=== PATIENT | female | born 1970 | race Caucasian/White ===

== ENCOUNTER 2020-09-13 14:47 | Inpatient (IN) ==
[2020-09-13] MEDS ORDERED: Acetaminophen 325 MG TABLET PO PRN (17:12)
[2020-09-13] MEDS ORDERED: MetroNIDAZOLE 500 MG/100 ML 500 MG/100 ML BAG IVPB SCH (17:12)
[2020-09-13] MEDS ORDERED: Naloxone 0.4 MG/ML INJ IVP PRN (17:12)
[2020-09-13] MEDS ORDERED: D5% in Water 250 ML ONE (17:24)
[2020-09-13] MEDS ORDERED: *HR* Norepinephrine 4 MG/4 ML VIAL IVC ONE (17:24)
[2020-09-13] MEDS ORDERED: 0.9 % Sodium Chloride 1,000 ML ONE ×2 (17:28→17:45)
[2020-09-13] MEDS ORDERED: 0.9 % Sodium Chloride 250 ML ONE (17:45)
[2020-09-13 17:48] LABS: VBG Ionized Calcium 1.05 mmol/L (1.15-1.35)
[2020-09-13 18:09] LABS: Amylase 256 Units/L (29-103); Lipase 163 Units/L (11-82)
[2020-09-13] MEDS ORDERED: Calcium Chloride 1,000 MG in 0.9 % Sodium Chloride 100 ML IVPB ONE (18:15)
[2020-09-13 18:18] LABS: Albumin 2.8 g/dL (3.5-5.7); Albumin/Globulin Ratio 0.8 (1.1-2.2); Bilirubin,Direct 1.1 mg/dL (0.0-0.2); Bilirubin,Indirect 0.7 mg/dL (0.0-1.0); Bilirubin,Total 1.8 mg/dL (0.3-1.0); Calcium 9.5 mg/dL (8.6-10.3); Globulin 3.4 g/dL (2.4-3.5); Magnesium 2.3 mg/dL (1.6-2.6); Phosphorous 7.8 mg/dL (2.7-4.5); Potassium 8.1 mEq/L (3.5-5.1); Total Protein 6.2 g/dL (6.4-8.9); Troponin I 0.04 ng/mL (< 0.04)
[2020-09-13 18:24] LABS: Basophils # 0.3 K/mcL (0.0-0.2); Basophils % 0.7 %; Eosinophils % 0.1 %; Hematocrit 38.3 % (35.3-44.9); Hemoglobin 12.5 g/dL (11.5-15.4); Immature Granulocytes % 4.5 % (0-4); Lymphocytes % 2.5 %; Mean Corpuscular HGB Conc 32.6 g/dL (31.6-35.5); Mean Corpuscular Hemoglobin 30.3 pg (28.0-33.3); Mean Corpuscular Volume 92.7 fL (83.0-100.0); Mean Platelet Volume 9.5 fL (9.4-12.4); Monocytes # 2.1 K/mcL (0.0-1.3); Monocytes % 5.2 %; Neutrophils # 35.5 K/mcL (1.6-8.9); Nucleated Red Blood Cells 0.1 /100 WBC (0); Platelet Count 404 K/mcL (140-400); Red Blood Count 4.13 M/mcL (3.82-4.97); Red Cell Distribution Width 18.7 % (11.5-14.5)
[2020-09-13 18:27] LABS: Adenovirus Not Detected (Not Detect); Bordetella Pertussis Not Detected (Not Detect); Chlamydophila pneumoniae Not Detected (Not Detect); Coronavirus 229E Not Detected (Not Detect); Coronavirus HKU1 Not Detected (Not Detect); Coronavirus NL63 Not Detected (Not Detect); Coronavirus OC43 Not Detected (Not Detect); Human Metapneumovirus Not Detected (Not Detect); Human Rhinovirus/Enterovirus Not Detected (Not Detect); Influenza A Subtype 2009 H1 Not Detected (Not Detect); Influenza B Not Detected (Not Detect); Mycoplasma pneumoniae Not Detected (Not Detect); Parainfluenza Virus 1 Not Detected (Not Detect); Parainfluenza Virus 2 Not Detected (Not Detect); Parainfluenza Virus 3 Not Detected (Not Detect); Parainfluenza Virus 4 Not Detected (Not Detect); Respiratory Syncytial Virus Not Detected (Not Detect); SARS-CoV-2 Not Detected (Not Detect)
[2020-09-13 18:28] LABS: White Blood Count 40.8 K/mcL (4.3-11.1)
[2020-09-13 18:29] LABS: Platelet Estimate Normal (Normal)
[2020-09-13 18:31] LABS: INR 1.2; Prothrombin Time 14.2 Seconds (9.4-12.1)
[2020-09-13 18:34] LABS: Activated Partial Thrombo Time 32.5 Seconds (26.0-36.0)
[2020-09-13] MEDS ORDERED: Insulin Human Regular 10 UNIT in 0.9 % Sodium Chloride 10 ML IV ONE ×2 (18:36→19:00)
[2020-09-13] MEDS ORDERED: *HR* Dextrose 50 % in Water (Vial) 50 ML VIAL IVP ONE (18:36)
[2020-09-13] MEDS ORDERED: Albuterol 2.5 MG/3 ML NEBULIZER IH PRN (18:36)
[2020-09-13] MEDS: 0.9 % Sodium Chloride 1,000 ML IVC SCH ×3 (18:48→20:40)
[2020-09-13] MEDS: Ipratropium/Albuterol Neb 3 ML IH SCH ×2 (18:51→23:31)
[2020-09-13 18:54] LABS: ABG Base Excess -4 mEq/L (-2 to 3); ABG HCO3 20 mEq/L (21-27); ABG Oxygen Saturation 98 % (95-98); ABG PCO2 31 mmHg (35-45); ABG PH 7.42 pH Units (7.32-7.45); ABG PO2 103 mmHg (85-104); ABG TCO2 21 mEq/L (20-26); Blood Gas Modality ASSIST CONTROL; Blood Gas VT 400 cc
[2020-09-13] MEDS ORDERED: Artificial Tears SOLN 15 ML BOTTLE BOTH EYES PRN (18:59)
[2020-09-13] MEDS ORDERED: Vancomycin 1,250 MG/262.5 ML IV.SOLN IVPB ONE (19:00)
[2020-09-13] MEDS: Sodium Bicarbonate 150 MEQ in D5% in Water 1,000 ML IVC SCH (19:38)
[2020-09-13] MEDS: Norepinephrine 4 MG/254 ML IV.SOLN IVC SCH (20:34)
[2020-09-13] MEDS: Chlorhexidine Rinse 15 ML MOUTHWASH MM SCH (20:38)
[2020-09-13] MEDS: Artificial Tears SOLN 15 ML BOTTLE BOTH EYES SCH ×2 (20:38→22:56)
[2020-09-13 21:33] LABS: Eosinophils % 0.1 %; Hemoglobin 11.7 g/dL (11.5-15.4); Nucleated Red Blood Cells 0.1 /100 WBC (0); Red Cell Distribution Width 18.6 % (11.5-14.5)
[2020-09-13 21:34] LABS: Basophils % 0.4 %; Hematocrit 35.3 % (35.3-44.9); Immature Granulocytes % 4.5 % (0-4); Lymphocytes # 0.9 K/mcL (0.6-4.6); Lymphocytes % 2.6 %; Mean Corpuscular HGB Conc 33.1 g/dL (31.6-35.5); Mean Corpuscular Hemoglobin 30.1 pg (28.0-33.3); Mean Corpuscular Volume 90.7 fL (83.0-100.0); Mean Platelet Volume 9.4 fL (9.4-12.4); Monocytes # 2.9 K/mcL (0.0-1.3); Monocytes % 8.4 %; Neutrophils # 28.8 K/mcL (1.6-8.9); Platelet Count 324 K/mcL (140-400); Red Blood Count 3.89 M/mcL (3.82-4.97)
[2020-09-13 21:38] LABS: Basophils # 0.1 K/mcL (0.0-0.2)
[2020-09-13 21:39] LABS: White Blood Count 34.3 K/mcL (4.3-11.1)
[2020-09-13 21:40] LABS: INR 1.4
[2020-09-13 21:57] LABS: Platelet Estimate Normal (Normal)
[2020-09-13 22:04] LABS: Albumin 2.9 g/dL (3.5-5.7); Albumin/Globulin Ratio 1.1 (1.1-2.2); Bilirubin,Total 2.7 mg/dL (0.3-1.0); Calcium 9.1 mg/dL (8.6-10.3); Globulin 2.7 g/dL (2.4-3.5); Magnesium 1.9 mg/dL (1.6-2.6); Phosphorous 6.5 mg/dL (2.7-4.5); Potassium 5.7 mEq/L (3.5-5.1); Total Protein 5.6 g/dL (6.4-8.9); Troponin I 0.1 ng/mL (< 0.04)
[2020-09-13] MEDS ORDERED: Ondansetron 4 MG/2 ML VIAL ONE (22:46)
[2020-09-13] MEDS: MetroNIDAZOLE 500 MG/100 ML 500 MG/100 ML BAG IVPB SCH (22:54)
[2020-09-13] MEDS: Ondansetron 4 MG/2 ML VIAL IVP PRN (22:55)
[2020-09-13] MEDS ORDERED: 0.9 % Sodium Chloride 1,000 ML PRIME ONE ×2 (23:14)
[2020-09-13] MEDS ORDERED: *HR* Heparin 5,000 UNIT/ML VIAL IVP PRN (23:14)
[2020-09-13] MEDS ORDERED: *HR* Alteplase (Cathflo) 2 MG VIAL IVP PRN (23:14)
[2020-09-14] MEDS ORDERED: 0.9 % Sodium Chloride 250 ML ONE (00:04)
[2020-09-14] MEDS: PrismaSATE BGK 4/2.5 5,000 ML CRRT SCH ×8 (01:00→20:28)
[2020-09-14] MEDS: 0.9 % Sodium Chloride 1,000 ML PRIME SCH ×2 (01:21→03:50)
[2020-09-14 03:31] LABS: VBG Ionized Calcium 1.05 mmol/L (1.15-1.35)
[2020-09-14] MEDS: Ipratropium/Albuterol Neb 3 ML IH SCH ×6 (03:31→23:13)
[2020-09-14 03:37] LABS: Basophils % 0.4 %; Hemoglobin 11.7 g/dL (11.5-15.4); Monocytes % 4.6 %
[2020-09-14 03:39] LABS: Basophils # 0.1 K/mcL (0.0-0.2); Hematocrit 35.4 % (35.3-44.9); Immature Granulocytes % 3.1 % (0-4); Lymphocytes # 1.3 K/mcL (0.6-4.6); Lymphocytes % 3.8 %; Mean Corpuscular HGB Conc 33.1 g/dL (31.6-35.5); Mean Corpuscular Hemoglobin 29.6 pg (28.0-33.3); Mean Corpuscular Volume 89.6 fL (83.0-100.0); Mean Platelet Volume 9.7 fL (9.4-12.4); Monocytes # 1.6 K/mcL (0.0-1.3); Neutrophils # 30.6 K/mcL (1.6-8.9); Platelet Count 318 K/mcL (140-400); Red Blood Count 3.95 M/mcL (3.82-4.97); Segmented Neutrophils % 88.1 %
[2020-09-14 03:40] LABS: INR 1.2; Prothrombin Time 13.8 Seconds (9.4-12.1)
[2020-09-14 03:43] LABS: White Blood Count 34.7 K/mcL (4.3-11.1)
[2020-09-14] MEDS: Artificial Tears SOLN 15 ML BOTTLE BOTH EYES SCH ×5 (04:17→20:00)
[2020-09-14 04:37] LABS: Albumin 2.9 g/dL (3.5-5.7); Albumin/Globulin Ratio 0.9 (1.1-2.2); Bilirubin,Total 2.2 mg/dL (0.3-1.0); Calcium 8.7 mg/dL (8.6-10.3); Globulin 3.3 g/dL (2.4-3.5); Magnesium 1.9 mg/dL (1.6-2.6); Phosphorous 5.6 mg/dL (2.7-4.5); Potassium 5.6 mEq/L (3.5-5.1); Total Protein 6.2 g/dL (6.4-8.9)
[2020-09-14 04:42] LABS: Troponin I 0.26 ng/mL (< 0.04)
[2020-09-14 04:56] LABS: ABG Base Excess -4 mEq/L (-2 to 3); ABG HCO3 19 mEq/L (21-27); ABG Oxygen Saturation 99 % (95-98); ABG PCO2 29 mmHg (35-45); ABG PH 7.44 pH Units (7.32-7.45); ABG PO2 120 mmHg (85-104); ABG TCO2 20 mEq/L (20-26); Blood Gas Modality AF; Blood Gas VT 400 cc
[2020-09-14] MEDS: Sodium Bicarbonate 150 MEQ in D5% in Water 1,000 ML IVC SCH ×2 (05:59→19:19)
[2020-09-14] MEDS: Pantoprazole 40 MG VIAL IVP SCH ×2 (06:18→18:36)
[2020-09-14] MEDS: MetroNIDAZOLE 500 MG/100 ML 500 MG/100 ML BAG IVPB SCH ×3 (06:18→22:08)
[2020-09-14] MEDS: Chlorhexidine Rinse 15 ML MOUTHWASH MM SCH ×2 (08:28→20:00)
[2020-09-14] MEDS ORDERED: Perflutren Lipid Microsphere 1.3 ML in 0.9 % Sodium Chloride 8.7 ML IVP PRN (08:41)
[2020-09-14] MEDS: clonazePAM 0.5 MG TABLET PO SCH ×3 (12:00→20:00)
[2020-09-14] MEDS ORDERED: 0.9 % Sodium Chloride 2,000 ML ONE (12:39)
[2020-09-14] MEDS ORDERED: *HR* Heparin 5,000 UNIT/ML VIAL ONE ×2 (12:40→22:36)
[2020-09-14] MEDS ORDERED: Heparin 1,000 UNITS/500 mL 500 ML ONE (12:46)
[2020-09-14 13:08] LABS: VBG Ionized Calcium 1.05 mmol/L (1.15-1.35)
[2020-09-14 13:38] LABS: Albumin 2.9 g/dL (3.5-5.7); Bilirubin,Total 1.3 mg/dL (0.3-1.0); Calcium 8.2 mg/dL (8.6-10.3); Globulin 2.9 g/dL (2.4-3.5); Magnesium 1.9 mg/dL (1.6-2.6); Phosphorous 4.4 mg/dL (2.7-4.5); Potassium 4.8 mEq/L (3.5-5.1); Total Protein 5.8 g/dL (6.4-8.9); Troponin I 0.19 ng/mL (< 0.04)
[2020-09-14] MEDS: levoFLOXacin 750 MG/150 ML 750 MG/150 ML BAG IVPB SCH (14:27)
[2020-09-14 17:14] LABS: VBG Ionized Calcium 1.03 mmol/L (1.15-1.35)
[2020-09-14 17:14] LABS: Basophils # 0.1 K/mcL (0.0-0.2); Basophils % 0.2 %; Eosinophils % 0.1 %; Hematocrit 28.8 % (35.3-44.9); Immature Granulocytes % 1.6 % (0-4); Lymphocytes # 0.8 K/mcL (0.6-4.6); Lymphocytes % 2.3 %; Mean Corpuscular HGB Conc 33.7 g/dL (31.6-35.5); Mean Corpuscular Hemoglobin 30.3 pg (28.0-33.3); Mean Platelet Volume 9.5 fL (9.4-12.4); Monocytes # 1.9 K/mcL (0.0-1.3); Monocytes % 5.2 %; Neutrophils # 33.3 K/mcL (1.6-8.9); Platelet Count 224 K/mcL (140-400); Red Cell Distribution Width 19.3 % (11.5-14.5); Segmented Neutrophils % 90.6 %
[2020-09-14 17:15] LABS: Hemoglobin 9.7 g/dL (11.5-15.4)
[2020-09-14 17:17] LABS: White Blood Count 36.7 K/mcL (4.3-11.1)
[2020-09-14 17:19] LABS: Platelet Estimate Normal (Normal)
[2020-09-14 17:22] LABS: Heparin anti-factor XA UFH 0.72 IU/mL (0.30-0.70); INR 1.4
[2020-09-14 17:37] LABS: Albumin 2.8 g/dL (3.5-5.7); Bilirubin,Total 1.2 mg/dL (0.3-1.0); Globulin 2.9 g/dL (2.4-3.5); Magnesium 1.8 mg/dL (1.6-2.6); Phosphorous 3.4 mg/dL (2.7-4.5); Potassium 4.7 mEq/L (3.5-5.1); Total Protein 5.7 g/dL (6.4-8.9); Troponin I 0.17 ng/mL (< 0.04)
[2020-09-14 17:38] LABS: Activated Partial Thrombo Time 122.7 Seconds (26.0-36.0)
[2020-09-14] MEDS ORDERED: Heparin 25,000UNIT/250ML 1/2NS 25,000 UNIT/250 ML IV.SOLN IVC SCH (18:00)
[2020-09-14] MEDS ORDERED: *HR* Heparin 5,000 UNIT/ML VIAL IVP PRN ×2 (18:00)
[2020-09-14 22:08] LABS: Hematocrit 28.4 % (35.3-44.9); Hemoglobin 9.3 g/dL (11.5-15.4)
[2020-09-14 22:25] LABS: Activated Partial Thrombo Time 32.1 Seconds (26.0-36.0); Heparin anti-factor XA UFH < 0.04 IU/mL (0.30-0.70)
[2020-09-15] MEDS ORDERED: *HR* LORazepam 0.5 MG TABLET PO ONE (01:37)
[2020-09-15] MEDS: Artificial Tears SOLN 15 ML BOTTLE BOTH EYES SCH ×7 (01:48→23:36)
[2020-09-15] MEDS: Ondansetron 4 MG/2 ML VIAL IVP PRN ×4 (01:58→20:30)
[2020-09-15] MEDS: Ipratropium/Albuterol Neb 3 ML IH SCH ×6 (03:21→23:37)
[2020-09-15] MEDS: Norepinephrine 4 MG/254 ML IV.SOLN IVC SCH ×2 (03:32→09:26)
[2020-09-15 04:03] LABS: ABG Base Excess 4 mEq/L (-2 to 3); ABG HCO3 30 mEq/L (21-27); ABG Oxygen Saturation 98 % (95-98); ABG PCO2 51 mmHg (35-45); ABG PH 7.38 pH Units (7.32-7.45); ABG PO2 103 mmHg (85-104); ABG TCO2 31 mEq/L (20-26); Blood Gas Modality CPAP/PS; Blood Gas Pressure Support 12 cm H2O
[2020-09-15 05:47] LABS: Basophils % 0.1 %; Nucleated Red Blood Cells 0.1 /100 WBC (0); Platelet Count 183 K/mcL (140-400)
[2020-09-15 05:48] LABS: Hematocrit 24.3 % (35.3-44.9); Hemoglobin 8.1 g/dL (11.5-15.4); Immature Granulocytes % 1.5 % (0-4); Lymphocytes # 0.7 K/mcL (0.6-4.6); Lymphocytes % 2.6 %; Mean Corpuscular HGB Conc 33.3 g/dL (31.6-35.5); Mean Corpuscular Hemoglobin 30.5 pg (28.0-33.3); Mean Corpuscular Volume 91.4 fL (83.0-100.0); Mean Platelet Volume 9.6 fL (9.4-12.4); Monocytes # 1.7 K/mcL (0.0-1.3); Monocytes % 6.6 %; Neutrophils # 23.4 K/mcL (1.6-8.9); Red Blood Count 2.66 M/mcL (3.82-4.97); Red Cell Distribution Width 19.7 % (11.5-14.5); Segmented Neutrophils % 89.2 %; White Blood Count 26.2 K/mcL (4.3-11.1)
[2020-09-15] MEDS: MetroNIDAZOLE 500 MG/100 ML 500 MG/100 ML BAG IVPB SCH ×3 (06:06→22:23)
[2020-09-15] MEDS: Pantoprazole 40 MG VIAL IVP SCH ×2 (06:06→17:19)
[2020-09-15] MEDS: Sodium Bicarbonate 150 MEQ in D5% in Water 1,000 ML IVC SCH ×2 (06:07→17:18)
[2020-09-15 06:14] LABS: Anisocytosis 1+ (Not Present); Macrocytosis Present (Not Present); Platelet Estimate Normal (Normal); Toxic Granulation Present (Not Present)
[2020-09-15 06:21] LABS: Albumin 2.7 g/dL (3.5-5.7); Bilirubin,Total 0.8 mg/dL (0.3-1.0); Calcium 8.2 mg/dL (8.6-10.3); Globulin 2.6 g/dL (2.4-3.5); Magnesium 1.8 mg/dL (1.6-2.6); Phosphorous 3.6 mg/dL (2.7-4.5); Potassium 4.6 mEq/L (3.5-5.1); Total Protein 5.3 g/dL (6.4-8.9)
[2020-09-15] MEDS: Chlorhexidine Rinse 15 ML MOUTHWASH MM SCH ×2 (09:07→20:42)
[2020-09-15] MEDS: clonazePAM 0.5 MG TABLET PO SCH ×3 (09:07→20:34)
[2020-09-15 11:19] LABS: Hematocrit 24.5 % (35.3-44.9); Hemoglobin 7.7 g/dL (11.5-15.4)
[2020-09-15] MEDS: *HR* Heparin 5,000 UNIT/ML VIAL SQ SCH (17:19)
[2020-09-15] MEDS: 0.9 % Sodium Chloride 250 ML ONE (17:38)
[2020-09-15] MEDS ORDERED: Vancomycin 500 MG in 0.9 % Sodium Chloride Mini Bag 100 ML IVPB ONE (18:00)
[2020-09-15 22:55] LABS: Hematocrit 25.3 % (35.3-44.9); Hemoglobin 8.3 g/dL (11.5-15.4)
[2020-09-16 03:58] LABS: Basophils % 0.1 %; Eosinophils # 0.1 K/mcL (0.0-0.6); Eosinophils % 0.3 %; Hematocrit 24.2 % (35.3-44.9); Immature Granulocytes % 1.1 % (0-4); Lymphocytes # 1.1 K/mcL (0.6-4.6); Lymphocytes % 6.6 %; Mean Corpuscular HGB Conc 33.1 g/dL (31.6-35.5); Mean Corpuscular Hemoglobin 29.5 pg (28.0-33.3); Mean Corpuscular Volume 89.3 fL (83.0-100.0); Mean Platelet Volume 9.5 fL (9.4-12.4); Monocytes % 6.3 %; Neutrophils # 13.8 K/mcL (1.6-8.9); Platelet Count 159 K/mcL (140-400); Red Blood Count 2.71 M/mcL (3.82-4.97); Red Cell Distribution Width 20.4 % (11.5-14.5); Segmented Neutrophils % 85.6 %; White Blood Count 16.1 K/mcL (4.3-11.1)
[2020-09-16 04:09] LABS: INR 1.4; Prothrombin Time 16.4 Seconds (9.4-12.1)
[2020-09-16] MEDS: Ipratropium/Albuterol Neb 3 ML IH SCH ×5 (04:09→20:03)
[2020-09-16 04:20] LABS: Albumin 2.4 g/dL (3.5-5.7); Bilirubin,Direct 0.3 mg/dL (0.0-0.2); Bilirubin,Indirect 0.4 mg/dL (0.0-1.0); Bilirubin,Total 0.7 mg/dL (0.3-1.0); Calcium 8.4 mg/dL (8.6-10.3); Globulin 2.5 g/dL (2.4-3.5); Magnesium 1.8 mg/dL (1.6-2.6); Phosphorous 3.7 mg/dL (2.7-4.5); Potassium 4.2 mEq/L (3.5-5.1); Total Protein 4.9 g/dL (6.4-8.9)
[2020-09-16] MEDS: Artificial Tears SOLN 15 ML BOTTLE BOTH EYES SCH ×5 (04:29→19:48)
[2020-09-16] MEDS: Sodium Bicarbonate 150 MEQ in D5% in Water 1,000 ML IVC SCH (04:29)
[2020-09-16 04:41] LABS: ABG Base Excess 8 mEq/L (-2 to 3); ABG HCO3 33 mEq/L (21-27); ABG Oxygen Saturation 99 % (95-98); ABG PCO2 48 mmHg (35-45); ABG PH 7.45 pH Units (7.32-7.45); ABG PO2 112 mmHg (85-104); ABG TCO2 35 mEq/L (20-26); Blood Gas Modality ASSIST CONTROL; Blood Gas VT 380 cc
[2020-09-16 04:52] LABS: Hematocrit 24.7 % (35.3-44.9)
[2020-09-16] MEDS: MetroNIDAZOLE 500 MG/100 ML 500 MG/100 ML BAG IVPB SCH ×3 (05:32→21:36)
[2020-09-16] MEDS: Pantoprazole 40 MG VIAL IVP SCH ×2 (05:32→18:07)
[2020-09-16] MEDS: *HR* Heparin 5,000 UNIT/ML VIAL SQ SCH ×2 (05:32→18:07)
[2020-09-16] MEDS ORDERED: Isovue-370 500 ML BOTTLE IVP ONE (08:05)
[2020-09-16] MEDS: Chlorhexidine Rinse 15 ML MOUTHWASH MM SCH ×2 (08:44→20:27)
[2020-09-16] MEDS: clonazePAM 0.5 MG TABLET PO SCH ×3 (08:45→20:27)
[2020-09-16 10:52] LABS: Hematocrit 25.3 % (35.3-44.9); Hemoglobin 8.1 g/dL (11.5-15.4)
[2020-09-16] MEDS: levoFLOXacin 750 MG/150 ML 750 MG/150 ML BAG IVPB SCH (14:36)
[2020-09-16] MEDS: Ondansetron 4 MG/2 ML VIAL IVP PRN ×2 (14:46→21:36)
[2020-09-16] MEDS: Norepinephrine 4 MG/254 ML IV.SOLN IVC SCH (19:48)
[2020-09-16] MEDS ORDERED: *HR* Dextrose 50 % in Water (Vial) 50 ML VIAL IVP ONE (23:27)
[2020-09-16] MEDS ORDERED: *HR* Dextrose 50 % in Water (Vial) 50 ML VIAL ONE (23:30)
[2020-09-17] MEDS: Ipratropium/Albuterol Neb 3 ML IH SCH ×7 (00:22→23:48)
[2020-09-17] MEDS: Artificial Tears SOLN 15 ML BOTTLE BOTH EYES SCH ×7 (01:03→23:10)
[2020-09-17] MEDS ORDERED: *HR* Dextrose 50 % in Water (Vial) 50 ML VIAL IVP ONE (01:03)
[2020-09-17] MEDS ORDERED: D5% in 0.9% NACL 1,000 ML IVC SCH (03:15)
[2020-09-17] MEDS ORDERED: Dextrose Gel 15 GM/37.5 ML TUBE PO PRN ×2 (03:18→10:56)
[2020-09-17 03:20] LABS: VBG Ionized Calcium 1.09 mmol/L (1.15-1.35)
[2020-09-17 03:27] LABS: INR 1.7; Prothrombin Time 19.5 Seconds (9.4-12.1)
[2020-09-17 03:29] LABS: Basophils % 0.2 %; Eosinophils % 0.1 %; Hematocrit 25.6 % (35.3-44.9); Hemoglobin 8.3 g/dL (11.5-15.4); Immature Granulocytes % 1.9 % (0-4); Lymphocytes % 5.6 %; Mean Corpuscular HGB Conc 32.4 g/dL (31.6-35.5); Mean Corpuscular Hemoglobin 29.6 pg (28.0-33.3); Mean Corpuscular Volume 91.4 fL (83.0-100.0); Mean Platelet Volume 9.5 fL (9.4-12.4); Monocytes # 1.2 K/mcL (0.0-1.3); Monocytes % 6.4 %; Neutrophils # 15.9 K/mcL (1.6-8.9); Nucleated Red Blood Cells 0.1 /100 WBC (0); Platelet Count 185 K/mcL (140-400); Red Cell Distribution Width 20.2 % (11.5-14.5); Segmented Neutrophils % 85.8 %; White Blood Count 18.6 K/mcL (4.3-11.1)
[2020-09-17 03:51] LABS: Albumin 2.4 g/dL (3.5-5.7); Albumin/Globulin Ratio 0.9 (1.1-2.2); Bilirubin,Direct 0.4 mg/dL (0.0-0.2); Bilirubin,Indirect 0.4 mg/dL (0.0-1.0); Bilirubin,Total 0.8 mg/dL (0.3-1.0); Calcium 8.4 mg/dL (8.6-10.3); Globulin 2.7 g/dL (2.4-3.5); Magnesium 1.8 mg/dL (1.6-2.6); Phosphorous 4.2 mg/dL (2.7-4.5); Potassium 4.3 mEq/L (3.5-5.1); Total Protein 5.1 g/dL (6.4-8.9)
[2020-09-17] MEDS: Pantoprazole 40 MG VIAL IVP SCH ×2 (05:44→16:59)
[2020-09-17] MEDS: *HR* Heparin 5,000 UNIT/ML VIAL SQ SCH ×2 (05:44→16:59)
[2020-09-17] MEDS: MetroNIDAZOLE 500 MG/100 ML 500 MG/100 ML BAG IVPB SCH ×3 (05:44→23:09)
[2020-09-17] MEDS: clonazePAM 0.5 MG TABLET PO SCH ×3 (08:23→19:49)
[2020-09-17] MEDS: Chlorhexidine Rinse 15 ML MOUTHWASH MM SCH ×2 (08:23→19:49)
[2020-09-17] MEDS: Desitin (Zinc Oxide) 56 GM TUBE TP SCH ×4 (08:24→19:51)
[2020-09-17] MEDS: Ondansetron 4 MG/2 ML VIAL IVP PRN (10:13)
[2020-09-17] MEDS ORDERED: Albuterol 2.5 MG/3 ML NEBULIZER IH PRN (10:56)
[2020-09-17] MEDS ORDERED: *HR* Alteplase (Cathflo) 2 MG VIAL IVP PRN (10:56)
[2020-09-17] MEDS ORDERED: *HR* Heparin 5,000 UNIT/ML VIAL IVP PRN (10:56)
[2020-09-17] MEDS ORDERED: Artificial Tears SOLN 15 ML BOTTLE BOTH EYES PRN (10:56)
[2020-09-17] MEDS ORDERED: Naloxone 0.4 MG/ML INJ IVP PRN (10:56)
[2020-09-17] MEDS: D5% in 0.9% NACL 1,000 ML IVC SCH (12:45)
[2020-09-17] MEDS: Benzonatate 100 MG CAPSULE PO PRN (23:31)
[2020-09-18] MEDS ORDERED: 0.9 % Sodium Chloride 250 ML IVC PRN (00:04)
[2020-09-18] MEDS ORDERED: 0.9 % Sodium Chloride 250 ML IVC ONE (00:06)
[2020-09-18] MEDS: Artificial Tears SOLN 15 ML BOTTLE BOTH EYES SCH ×5 (03:05→21:25)
[2020-09-18] MEDS: Ipratropium/Albuterol Neb 3 ML IH SCH ×6 (04:03→23:34)
[2020-09-18] MEDS: MetroNIDAZOLE 500 MG/100 ML 500 MG/100 ML BAG IVPB SCH ×3 (05:34→21:29)
[2020-09-18] MEDS: Pantoprazole 40 MG VIAL IVP SCH ×2 (05:34→17:03)
[2020-09-18] MEDS: *HR* Heparin 5,000 UNIT/ML VIAL SQ SCH ×2 (05:34→17:03)
[2020-09-18 06:15] LABS: Basophils % 0.2 %; Eosinophils # 0.1 K/mcL (0.0-0.6); Eosinophils % 0.6 %; Hematocrit 25.2 % (35.3-44.9); Hemoglobin 7.9 g/dL (11.5-15.4); Immature Granulocytes % 4.1 % (0-4); Lymphocytes # 1.6 K/mcL (0.6-4.6); Lymphocytes % 9.4 %; Mean Corpuscular HGB Conc 31.3 g/dL (31.6-35.5); Mean Corpuscular Hemoglobin 29.3 pg (28.0-33.3); Mean Corpuscular Volume 93.3 fL (83.0-100.0); Mean Platelet Volume 9.5 fL (9.4-12.4); Monocytes # 1.5 K/mcL (0.0-1.3); Monocytes % 8.4 %; Neutrophils # 13.6 K/mcL (1.6-8.9); Platelet Count 197 K/mcL (140-400); Red Cell Distribution Width 20.3 % (11.5-14.5); Segmented Neutrophils % 77.3 %; White Blood Count 17.5 K/mcL (4.3-11.1)
[2020-09-18 06:16] LABS: VBG Ionized Calcium 1.08 mmol/L (1.15-1.35)
[2020-09-18 06:22] LABS: INR 2.2; Prothrombin Time 24.8 Seconds (9.4-12.1)
[2020-09-18 06:37] LABS: Albumin 2.4 g/dL (3.5-5.7); Bilirubin,Direct 0.3 mg/dL (0.0-0.2); Bilirubin,Indirect 0.5 mg/dL (0.0-1.0); Bilirubin,Total 0.8 mg/dL (0.3-1.0); Globulin 2.5 g/dL (2.4-3.5); Magnesium 1.8 mg/dL (1.6-2.6); Phosphorous 5.2 mg/dL (2.7-4.5); Potassium 4.2 mEq/L (3.5-5.1); Total Protein 4.9 g/dL (6.4-8.9)
[2020-09-18] MEDS: Vitamin B Complex/Vit C/Vit E 1 EACH TABLET PO SCH (08:20)
[2020-09-18] MEDS: clonazePAM 0.5 MG TABLET PO SCH ×3 (08:21→21:26)
[2020-09-18] MEDS: Chlorhexidine Rinse 15 ML MOUTHWASH MM SCH ×2 (08:21→21:24)
[2020-09-18] MEDS: Desitin (Zinc Oxide) 56 GM TUBE TP SCH ×3 (08:22→21:26)
[2020-09-18] MEDS ORDERED: *HR* FentaNYL (PF) 100 MCG/2 ML VIAL IVP ONE (09:42)
[2020-09-18] MEDS ORDERED: *HR* EPINEPHrine 1 MG/10 ML SYRINGE INTRATRACH PRN (09:42)
[2020-09-18] MEDS ORDERED: *HR* Midazolam HCl 5 MG/5 ML VIAL IVP ONE (09:42)
[2020-09-18] MEDS: D5% in 0.9% NACL 1,000 ML IVC SCH (10:26)
[2020-09-18] MEDS ORDERED: Lidocaine Viscous Oral Soln 15 ML SOLUTION ONE (10:34)
[2020-09-18] MEDS ORDERED: levoFLOXacin 750 MG/150 ML 750 MG/150 ML BAG IVPB SCH (14:00)
[2020-09-18] MEDS ORDERED: 0.9 % Sodium Chloride 250 ML ONE (16:58)
[2020-09-18] MEDS: 0.9 % Sodium Chloride 250 ML ONE (17:03)
[2020-09-18] MEDS: Budesonide/Formoterol 160/4.5 1 PUFF INH IH SCH (20:28)
[2020-09-18] MEDS: Mirtazapine 15 MG TABLET PO SCH (21:25)
[2020-09-18 22:48] LABS: Hematocrit 28.5 % (35.3-44.9); Mean Corpuscular HGB Conc 31.6 g/dL (31.6-35.5); Mean Corpuscular Hemoglobin 28.8 pg (28.0-33.3); Mean Corpuscular Volume 91.3 fL (83.0-100.0); Mean Platelet Volume 9.1 fL (9.4-12.4); Platelet Count 221 K/mcL (140-400); Red Blood Count 3.12 M/mcL (3.82-4.97); Red Cell Distribution Width 18.9 % (11.5-14.5); White Blood Count 18.9 K/mcL (4.3-11.1)
[2020-09-19] MEDS: Ipratropium/Albuterol Neb 3 ML IH SCH ×7 (04:07→23:18)
[2020-09-19] MEDS: Artificial Tears SOLN 15 ML BOTTLE BOTH EYES SCH ×6 (04:10→23:02)
[2020-09-19 04:31] LABS: Hematocrit 28.4 % (35.3-44.9); Mean Corpuscular HGB Conc 31.7 g/dL (31.6-35.5); Mean Corpuscular Hemoglobin 29.1 pg (28.0-33.3); Mean Corpuscular Volume 91.9 fL (83.0-100.0); Mean Platelet Volume 9.2 fL (9.4-12.4); Platelet Count 244 K/mcL (140-400); Red Blood Count 3.09 M/mcL (3.82-4.97); Red Cell Distribution Width 19.2 % (11.5-14.5); White Blood Count 17.3 K/mcL (4.3-11.1)
[2020-09-19 04:38] LABS: VBG Ionized Calcium 1.06 mmol/L (1.15-1.35)
[2020-09-19 04:49] LABS: Albumin 2.4 g/dL (3.5-5.7); Albumin/Globulin Ratio 0.9 (1.1-2.2); Bilirubin,Total 0.9 mg/dL (0.3-1.0); Calcium 7.8 mg/dL (8.6-10.3); Globulin 2.7 g/dL (2.4-3.5); Magnesium 1.8 mg/dL (1.6-2.6); Phosphorous 5.8 mg/dL (2.7-4.5); Total Protein 5.1 g/dL (6.4-8.9)
[2020-09-19 04:53] LABS: INR 2.7; Prothrombin Time 30.5 Seconds (9.4-12.1)
[2020-09-19 05:30] LABS: Lymphocytes # 1.7 K/mcL (0.6-4.6); Monocytes # 0.7 K/mcL (0.0-1.3); Neutrophils # 14.5 K/mcL (1.6-8.9); Platelet Estimate Normal (Normal); Toxic Granulation Present (Not Present)
[2020-09-19] MEDS: *HR* Heparin 5,000 UNIT/ML VIAL SQ SCH ×2 (06:39→16:50)
[2020-09-19] MEDS: Pantoprazole 40 MG VIAL IVP SCH ×2 (06:39→16:49)
[2020-09-19] MEDS: MetroNIDAZOLE 500 MG/100 ML 500 MG/100 ML BAG IVPB SCH ×3 (06:40→23:01)
[2020-09-19] MEDS ORDERED: 0.9 % Sodium Chloride 1,000 ML ONE (07:27)
[2020-09-19] MEDS ORDERED: Albumin 25% 25gram/100mL 25 GM/100 ML IV.SOLN IVPB PRN (07:31)
[2020-09-19] MEDS ORDERED: *HR* Heparin 10,000 UNIT/10 ML VIAL IV PRN (07:31)
[2020-09-19] MEDS ORDERED: 0.9 % Sodium Chloride 250 ML IVC PRN (07:31)
[2020-09-19] MEDS: Budesonide/Formoterol 160/4.5 1 PUFF INH IH SCH ×2 (07:40→19:53)
[2020-09-19] MEDS ORDERED: 0.9 % Sodium Chloride 1,000 ML PRIME SCH (07:45)
[2020-09-19] MEDS: Desitin (Zinc Oxide) 56 GM TUBE TP SCH ×3 (08:10→23:03)
[2020-09-19] MEDS: Ondansetron 4 MG/2 ML VIAL IVP PRN ×2 (10:49→17:21)
[2020-09-19] MEDS ORDERED: *HR* FentaNYL (PF) 100 MCG/2 ML VIAL IVP ONE (11:06)
[2020-09-19] MEDS ORDERED: *HR* Midazolam HCl 2 MG/2 ML VIAL IVP ONE (11:06)
[2020-09-19] MEDS ORDERED: Lidocaine/EPI 1:100k 1% 50 ML VIAL ONE (11:10)
[2020-09-19] MEDS ORDERED: Heparin 1,000 UNITS/500 mL 500 ML ONE ×3 (11:10→11:36)
[2020-09-19] MEDS ORDERED: *HR* FentaNYL (PF) 100 MCG/2 ML VIAL ONE (11:19)
[2020-09-19] MEDS ORDERED: 0.9 % Sodium Chloride 500 ML ONE (11:20)
[2020-09-19] MEDS ORDERED: *HR* Heparin 5,000 UNIT/ML VIAL ONE (12:04)
[2020-09-19] MEDS: clonazePAM 0.5 MG TABLET PO SCH ×3 (13:46→23:01)
[2020-09-19 15:09] LABS: Hepatitis B Surface Antibody < 3.10 mIU/mL
[2020-09-19 15:19] LABS: Hepatitis B Surface Antigen Nonreactive (Nonreactive)
[2020-09-19 15:44] LABS: Total Volume 24 Hour,Urine 0.11 Liters (0.60-1.60)
[2020-09-19 15:45] LABS: Total Volume 24 Hour,Urine 0.11 Liters (0.60-1.60)
[2020-09-19 16:21] LABS: Potassium,Urine 41.2 mEq/L; Protein/Creatinine Ratio,Urine 6.33 mg/mg (0.00-0.20)
[2020-09-19] MEDS: Vitamin B Complex/Vit C/Vit E 1 EACH TABLET PO SCH (16:47)
[2020-09-19] MEDS: Chlorhexidine Rinse 15 ML MOUTHWASH MM SCH ×2 (17:04→23:02)
[2020-09-19] MEDS: Acetylcysteine 10% 2 ML INHSOL IH SCH ×2 (17:53→19:54)
[2020-09-19] MEDS: Mirtazapine 15 MG TABLET PO SCH (23:01)
[2020-09-20] MEDS: Artificial Tears SOLN 15 ML BOTTLE BOTH EYES SCH ×6 (01:24→22:06)
[2020-09-20] MEDS: D5% in 0.9% NACL 1,000 ML IVC SCH (01:24)
[2020-09-20 01:45] LABS: Basophils % 0.2 %; Eosinophils % 0.1 %; Hematocrit 27.1 % (35.3-44.9); Hemoglobin 8.7 g/dL (11.5-15.4); Immature Granulocytes % 2.4 % (0-4); Lymphocytes # 1.2 K/mcL (0.6-4.6); Lymphocytes % 6.7 %; Mean Corpuscular HGB Conc 32.1 g/dL (31.6-35.5); Mean Corpuscular Hemoglobin 29.2 pg (28.0-33.3); Mean Corpuscular Volume 90.9 fL (83.0-100.0); Mean Platelet Volume 9.1 fL (9.4-12.4); Monocytes # 1.4 K/mcL (0.0-1.3); Neutrophils # 14.9 K/mcL (1.6-8.9); Platelet Count 256 K/mcL (140-400); Red Blood Count 2.98 M/mcL (3.82-4.97); Red Cell Distribution Width 19.6 % (11.5-14.5); Segmented Neutrophils % 82.6 %
[2020-09-20 01:50] LABS: VBG Ionized Calcium 1.08 mmol/L (1.15-1.35)
[2020-09-20 01:52] LABS: INR 3.6; Prothrombin Time 39.9 Seconds (9.4-12.1)
[2020-09-20 02:01] LABS: Albumin 2.6 g/dL (3.5-5.7); Bilirubin,Total 0.9 mg/dL (0.3-1.0); Calcium 7.9 mg/dL (8.6-10.3); Globulin 2.5 g/dL (2.4-3.5); Magnesium 1.7 mg/dL (1.6-2.6); Phosphorous 3.1 mg/dL (2.7-4.5); Potassium 3.7 mEq/L (3.5-5.1); Total Protein 5.1 g/dL (6.4-8.9)
[2020-09-20] MEDS: Acetaminophen 325 MG TABLET PO PRN (03:10)
[2020-09-20] MEDS: Acetylcysteine 10% 2 ML INHSOL IH SCH ×4 (03:37→19:39)
[2020-09-20] MEDS: Ipratropium/Albuterol Neb 3 ML IH SCH ×6 (03:37→23:40)
[2020-09-20] MEDS: Pantoprazole 40 MG VIAL IVP SCH ×2 (06:55→18:08)
[2020-09-20] MEDS: MetroNIDAZOLE 500 MG/100 ML 500 MG/100 ML BAG IVPB SCH ×2 (06:56→15:21)
[2020-09-20] MEDS: Desitin (Zinc Oxide) 56 GM TUBE TP SCH ×4 (06:57→22:06)
[2020-09-20] MEDS: *HR* Heparin 5,000 UNIT/ML VIAL SQ SCH (06:58)
[2020-09-20] MEDS: Budesonide/Formoterol 160/4.5 1 PUFF INH IH SCH ×2 (07:12→19:39)
[2020-09-20 07:58] LABS: Blood Gas VT 380 cc; Mixed Venous Blood pCO2 37 mmHg (44-46); Mixed Venous Blood pH 7.43 pH Units (7.34-7.36); Mixed Venous Blood pO2 36 mmHg (35-45)
[2020-09-20] MEDS ORDERED: Ertapenem 1,000 MG in 0.9 % Sodium Chloride Mini Bag 100 ML IVPB SCH (09:00)
[2020-09-20] MEDS: clonazePAM 0.5 MG TABLET PO SCH ×3 (09:09→22:05)
[2020-09-20] MEDS: Vitamin B Complex/Vit C/Vit E 1 EACH TABLET PO SCH (09:09)
[2020-09-20] MEDS: Chlorhexidine Rinse 15 ML MOUTHWASH MM SCH ×2 (09:10→22:05)
[2020-09-20] MEDS: Ondansetron 4 MG/2 ML VIAL IVP PRN (09:29)
[2020-09-20] MEDS ORDERED: levoFLOXacin 500 MG/100 ML 500 MG/100 ML BAG IVPB SCH (16:00)
[2020-09-20] MEDS: Mirtazapine 15 MG TABLET PO SCH (22:05)
[2020-09-21 02:33] LABS: Basophils % 0.2 %; Eosinophils # 0.1 K/mcL (0.0-0.6); Eosinophils % 0.3 %; Hemoglobin 8.9 g/dL (11.5-15.4); Immature Granulocytes % 2.8 % (0-4); Lymphocytes # 2.1 K/mcL (0.6-4.6); Lymphocytes % 11.4 %; Mean Corpuscular HGB Conc 31.8 g/dL (31.6-35.5); Mean Corpuscular Hemoglobin 29.4 pg (28.0-33.3); Mean Corpuscular Volume 92.4 fL (83.0-100.0); Monocytes # 1.4 K/mcL (0.0-1.3); Monocytes % 7.4 %; Neutrophils # 14.3 K/mcL (1.6-8.9); Platelet Count 268 K/mcL (140-400); Red Blood Count 3.03 M/mcL (3.82-4.97); Red Cell Distribution Width 19.9 % (11.5-14.5); Segmented Neutrophils % 77.9 %; White Blood Count 18.3 K/mcL (4.3-11.1)
[2020-09-21 02:36] LABS: VBG Ionized Calcium 1.07 mmol/L (1.15-1.35)
[2020-09-21 02:40] LABS: INR 4.9; Prothrombin Time 53.7 Seconds (9.4-12.1)
[2020-09-21 02:41] LABS: Bacteria,Urine Few per hpf (None-Few); Bilirubin,Urine Negative (Negative); Blood,Urine Moderate (Negative); Budding Yeast,Urine Moderate per hpf (None Seen); Clarity,Urine Turbid (Clear); Color,Urine Yellow (Yellow); Glucose,Urine (UA) Normal (Normal); Hyaline Casts,Urine Few per lpf (None Seen); Ketones,Urine Negative (Negative); Leukocyte Esterase,Urine Large (Negative); Nitrite,Urine Negative (Negative); Protein,Urine 100 mg/dL (Neg-Trace); RBC,Urine 30-50 per hpf (0-3); Specific Gravity,Urine 1.023 (1.010-1.025); Squamous Epithelial Cell,Urine Few per hpf (None-Few); Urobilinogen,Urine Normal (Normal); WBC,Urine TNTC per hpf (0-3)
[2020-09-21 02:54] LABS: Albumin 2.5 g/dL (3.5-5.7); Albumin/Globulin Ratio 0.9 (1.1-2.2); Bilirubin,Total 0.9 mg/dL (0.3-1.0); Calcium 8.1 mg/dL (8.6-10.3); Globulin 2.7 g/dL (2.4-3.5); Magnesium 1.6 mg/dL (1.6-2.6); Phosphorous 3.5 mg/dL (2.7-4.5); Potassium 3.4 mEq/L (3.5-5.1); Total Protein 5.2 g/dL (6.4-8.9)
[2020-09-21] MEDS: Acetylcysteine 10% 2 ML INHSOL IH SCH ×4 (04:09→19:51)
[2020-09-21] MEDS: Ipratropium/Albuterol Neb 3 ML IH SCH ×6 (04:09→23:59)
[2020-09-21] MEDS: Artificial Tears SOLN 15 ML BOTTLE BOTH EYES SCH ×7 (06:45→23:43)
[2020-09-21] MEDS: Pantoprazole 40 MG VIAL IVP SCH ×2 (06:46→16:53)
[2020-09-21] MEDS: Budesonide/Formoterol 160/4.5 1 PUFF INH IH SCH ×2 (07:30→19:52)
[2020-09-21] MEDS ORDERED: 0.9 % Sodium Chloride 250 ML IVC PRN (08:08)
[2020-09-21] MEDS ORDERED: Albumin 25% 25gram/100mL 25 GM/100 ML IV.SOLN IVPB PRN (08:08)
[2020-09-21] MEDS ORDERED: *HR* Heparin 10,000 UNIT/10 ML VIAL IV PRN (08:08)
[2020-09-21] MEDS ORDERED: 0.9 % Sodium Chloride 1,000 ML PRIME SCH (08:15)
[2020-09-21] MEDS: Vitamin B Complex/Vit C/Vit E 1 EACH TABLET PO SCH (09:10)
[2020-09-21] MEDS: D5% in 0.9% NACL 1,000 ML IVC SCH (09:10)
[2020-09-21] MEDS: clonazePAM 0.5 MG TABLET PO SCH ×3 (09:10→23:38)
[2020-09-21] MEDS: Chlorhexidine Rinse 15 ML MOUTHWASH MM SCH ×2 (09:11→23:38)
[2020-09-21] MEDS: Desitin (Zinc Oxide) 56 GM TUBE TP SCH ×3 (09:11→23:40)
[2020-09-21] MEDS ORDERED: *HR* Phytonadione 5 MG TABLET PO ONE (11:45)
[2020-09-21 15:12] LABS: Activated Partial Thrombo Time 53.8 Seconds (26.0-36.0)
[2020-09-21] MEDS ORDERED: 0.9 % Sodium Chloride 250 ML ONE (15:47)
[2020-09-21] MEDS: Ondansetron 4 MG/2 ML VIAL IVP PRN (16:52)
[2020-09-21] MEDS: Benzonatate 100 MG CAPSULE PO PRN (16:57)
[2020-09-21] MEDS: Acetaminophen 325 MG TABLET PO PRN (22:40)
[2020-09-21] MEDS: metroNIDAZOLE 500 MG TABLET PO SCH (23:38)
[2020-09-21] MEDS: Mirtazapine 15 MG TABLET PO SCH (23:39)
[2020-09-22] MEDS: Ipratropium/Albuterol Neb 3 ML IH SCH ×5 (04:31→20:12)
[2020-09-22] MEDS: Acetylcysteine 10% 2 ML INHSOL IH SCH ×3 (04:31→15:06)
[2020-09-22] MEDS: Artificial Tears SOLN 15 ML BOTTLE BOTH EYES SCH ×5 (05:35→20:31)
[2020-09-22] MEDS: Pantoprazole 40 MG VIAL IVP SCH ×2 (05:35→16:37)
[2020-09-22 05:57] LABS: Basophils % 0.2 %; Eosinophils % 0.3 %; Hematocrit 26.1 % (35.3-44.9); Hemoglobin 8.4 g/dL (11.5-15.4); Immature Granulocytes % 2.2 % (0-4); Lymphocytes # 1.2 K/mcL (0.6-4.6); Lymphocytes % 8.1 %; Mean Corpuscular HGB Conc 32.2 g/dL (31.6-35.5); Mean Corpuscular Volume 93.2 fL (83.0-100.0); Mean Platelet Volume 9.2 fL (9.4-12.4); Monocytes # 0.9 K/mcL (0.0-1.3); Neutrophils # 12.5 K/mcL (1.6-8.9); Platelet Count 264 K/mcL (140-400); Red Cell Distribution Width 19.8 % (11.5-14.5); Segmented Neutrophils % 83.2 %
[2020-09-22 06:04] LABS: INR 3.1; Prothrombin Time 35.1 Seconds (9.4-12.1)
[2020-09-22 06:06] LABS: VBG Ionized Calcium 1.11 mmol/L (1.15-1.35)
[2020-09-22] MEDS: Budesonide/Formoterol 160/4.5 1 PUFF INH IH SCH ×2 (07:22→20:13)
[2020-09-22 07:33] LABS: Albumin 2.7 g/dL (3.5-5.7); Bilirubin,Direct 0.6 mg/dL (0.0-0.2); Bilirubin,Indirect 0.6 mg/dL (0.0-1.0); Bilirubin,Total 1.2 mg/dL (0.3-1.0); Globulin 2.6 g/dL (2.4-3.5); Total Protein 5.3 g/dL (6.4-8.9)
[2020-09-22 07:46] LABS: Albumin 2.7 g/dL (3.5-5.7); Bilirubin,Total 1.2 mg/dL (0.3-1.0); Calcium 8.3 mg/dL (8.6-10.3); Globulin 2.6 g/dL (2.4-3.5); Magnesium 1.6 mg/dL (1.6-2.6); Phosphorous 2.3 mg/dL (2.7-4.5); Potassium 3.1 mEq/L (3.5-5.1); Total Protein 5.3 g/dL (6.4-8.9)
[2020-09-22] MEDS: Chlorhexidine Rinse 15 ML MOUTHWASH MM SCH ×2 (08:31→20:31)
[2020-09-22] MEDS: Ondansetron 4 MG/2 ML VIAL IVP PRN ×2 (08:31→17:33)
[2020-09-22] MEDS: clonazePAM 0.5 MG TABLET PO SCH ×3 (08:31→20:31)
[2020-09-22] MEDS: Vitamin B Complex/Vit C/Vit E 1 EACH TABLET PO SCH (08:32)
[2020-09-22] MEDS: Desitin (Zinc Oxide) 56 GM TUBE TP SCH ×2 (08:32→16:37)
[2020-09-22] MEDS: metroNIDAZOLE 500 MG TABLET PO SCH ×3 (08:32→20:31)
[2020-09-22 12:35] LABS: Adenovirus F 40/41 PCR Not detected (Not detect); Astrovirus PCR Not detected (Not detect); C.difficile Toxin A/B Gene PCR Not detected (Not detect); Campylobacter by PCR Not detected (Not detect); Cryptosporidium by PCR Not detected (Not detect); Cyclospora cayetanensis PCR Not detected (Not detect); E. coli O157 by PCR Not detected (Not detect); Entamoeba histolytica PCR Not detected (Not detect); Enteroaggregative E.coli(EAEC) Not detected (Not detect); Enteropathogenic E.coli(EPEC) Not detected (Not detect); Enterotoxigenic E.coli (ETEC) Not detected (Not detect); Giardia lamblia PCR Not detected (Not detect); Norovirus GI/GII PCR Not detected (Not detect); Plesiomonas shigelloides PCR Not detected (Not detect); Rotavirus A PCR Not detected (Not detect); Salmonella PCR Not detected (Not detect); Sapovirus PCR Not detected (Not detect); Shig/EnteroinvasiveE coli EIEC Not detected (Not detect); Shigalike tox-prod E coli STEC Not detected (Not detect); Vibrio PCR Not detected (Not detect); Vibrio cholerae PCR Not detected (Not detect); Yersinia enterocolitica PCR Not detected (Not detect)
[2020-09-22] MEDS: Acetaminophen 325 MG TABLET PO PRN (16:48)
[2020-09-22] MEDS: Mirtazapine 15 MG TABLET PO SCH (20:31)
[2020-09-22] MEDS: Benzonatate 100 MG CAPSULE PO PRN (21:30)
[2020-09-23] MEDS: Ipratropium/Albuterol Neb 3 ML IH SCH ×6 (00:04→20:16)
[2020-09-23] MEDS: Artificial Tears SOLN 15 ML BOTTLE BOTH EYES SCH ×6 (01:26→19:39)
[2020-09-23] MEDS: Desitin (Zinc Oxide) 56 GM TUBE TP SCH ×3 (05:26→16:07)
[2020-09-23] MEDS: Pantoprazole 40 MG VIAL IVP SCH ×2 (05:45→16:06)
[2020-09-23 05:59] LABS: Basophils % 0.2 %; Eosinophils # 0.1 K/mcL (0.0-0.6); Eosinophils % 0.3 %; Hematocrit 25.5 % (35.3-44.9); Hemoglobin 8.2 g/dL (11.5-15.4); Immature Granulocytes % 1.5 % (0-4); Lymphocytes # 0.7 K/mcL (0.6-4.6); Lymphocytes % 4.8 %; Mean Corpuscular HGB Conc 32.2 g/dL (31.6-35.5); Mean Corpuscular Hemoglobin 29.3 pg (28.0-33.3); Mean Corpuscular Volume 91.1 fL (83.0-100.0); Mean Platelet Volume 9.1 fL (9.4-12.4); Monocytes # 0.9 K/mcL (0.0-1.3); Monocytes % 6.1 %; Neutrophils # 13.2 K/mcL (1.6-8.9); Platelet Count 268 K/mcL (140-400); Red Cell Distribution Width 19.7 % (11.5-14.5); Segmented Neutrophils % 87.1 %; White Blood Count 15.2 K/mcL (4.3-11.1)
[2020-09-23 06:15] LABS: Calcium 8.4 mg/dL (8.6-10.3); Potassium 3.2 mEq/L (3.5-5.1)
[2020-09-23] MEDS ORDERED: *HR* Heparin 10,000 UNIT/10 ML VIAL IV PRN (07:23)
[2020-09-23] MEDS ORDERED: 0.9 % Sodium Chloride 250 ML IVC PRN (07:23)
[2020-09-23] MEDS: Budesonide/Formoterol 160/4.5 1 PUFF INH IH SCH ×2 (07:28→20:16)
[2020-09-23] MEDS: Vitamin B Complex/Vit C/Vit E 1 EACH TABLET PO SCH (08:33)
[2020-09-23] MEDS: metroNIDAZOLE 500 MG TABLET PO SCH ×3 (08:33→19:39)
[2020-09-23] MEDS: clonazePAM 0.5 MG TABLET PO SCH ×3 (08:33→19:39)
[2020-09-23] MEDS: Chlorhexidine Rinse 15 ML MOUTHWASH MM SCH ×2 (08:42→19:38)
[2020-09-23 10:57] LABS: INR 1.7; Prothrombin Time 19.8 Seconds (9.4-12.1)
[2020-09-23] MEDS: Ondansetron 4 MG/2 ML VIAL IVP PRN (12:36)
[2020-09-23] MEDS ORDERED: Isovue-370 500 ML BOTTLE PO ONE (14:35)
[2020-09-23] MEDS: Cefepime HCl 2,000 MG in 0.9 % Sodium Chloride Mini Bag 100 ML IVPB SCH (16:07)
[2020-09-23] MEDS: Fluconazole 100 MG TABLET PO SCH (16:07)
[2020-09-23] MEDS: *HR* Promethazine 25 MG/ML VIAL IM PRN (17:51)
[2020-09-23] MEDS: Mirtazapine 15 MG TABLET PO SCH (19:39)
[2020-09-23] MEDS ORDERED: Dextrose Gel 15 GM/37.5 ML TUBE PO PRN (23:58)
[2020-09-23] MEDS ORDERED: D5% in Water 1,000 ML IVC PRN (23:58)
[2020-09-24] MEDS ORDERED: *HR* Dextrose 50 % in Water (Vial) 50 ML VIAL ONE (00:10)
[2020-09-24] MEDS: *HR* Dextrose 50 % in Water (Vial) 50 ML VIAL IVP PRN ×2 (00:16→05:43)
[2020-09-24] MEDS: Artificial Tears SOLN 15 ML BOTTLE BOTH EYES SCH ×6 (00:47→21:02)
[2020-09-24] MEDS: Desitin (Zinc Oxide) 56 GM TUBE TP SCH ×4 (03:15→21:14)
[2020-09-24] MEDS: Ipratropium/Albuterol Neb 3 ML IH SCH ×6 (03:29→19:56)
[2020-09-24 04:37] LABS: Basophils % 0.1 %; Eosinophils # 0.1 K/mcL (0.0-0.6); Eosinophils % 0.6 %; Hematocrit 26.7 % (35.3-44.9); Hemoglobin 8.3 g/dL (11.5-15.4); Lymphocytes # 0.9 K/mcL (0.6-4.6); Lymphocytes % 5.9 %; Mean Corpuscular HGB Conc 31.1 g/dL (31.6-35.5); Mean Corpuscular Hemoglobin 29.1 pg (28.0-33.3); Mean Corpuscular Volume 93.7 fL (83.0-100.0); Mean Platelet Volume 9.3 fL (9.4-12.4); Monocytes # 0.9 K/mcL (0.0-1.3); Neutrophils # 13.5 K/mcL (1.6-8.9); Platelet Count 271 K/mcL (140-400); Red Blood Count 2.85 M/mcL (3.82-4.97); Red Cell Distribution Width 19.7 % (11.5-14.5); Segmented Neutrophils % 86.4 %; White Blood Count 15.6 K/mcL (4.3-11.1)
[2020-09-24 04:49] LABS: INR 1.7; Prothrombin Time 18.9 Seconds (9.4-12.1)
[2020-09-24 04:52] LABS: Albumin 2.6 g/dL (3.5-5.7); Albumin/Globulin Ratio 0.9 (1.1-2.2); Bilirubin,Total 1.3 mg/dL (0.3-1.0); Calcium 8.6 mg/dL (8.6-10.3); Globulin 2.8 g/dL (2.4-3.5); Potassium 3.7 mEq/L (3.5-5.1); Total Protein 5.4 g/dL (6.4-8.9)
[2020-09-24] MEDS: Pantoprazole 40 MG VIAL IVP SCH ×2 (05:29→17:50)
[2020-09-24] MEDS: Budesonide/Formoterol 160/4.5 1 PUFF INH IH SCH ×2 (07:32→19:56)
[2020-09-24] MEDS: Fluconazole 100 MG TABLET PO SCH (08:39)
[2020-09-24] MEDS: metroNIDAZOLE 500 MG TABLET PO SCH ×3 (08:39→20:58)
[2020-09-24] MEDS: clonazePAM 0.5 MG TABLET PO SCH ×3 (08:39→20:58)
[2020-09-24] MEDS: Chlorhexidine Rinse 15 ML MOUTHWASH MM SCH ×2 (08:40→20:48)
[2020-09-24] MEDS: Vitamin B Complex/Vit C/Vit E 1 EACH TABLET PO SCH (08:40)
[2020-09-24] MEDS: Ondansetron 4 MG/2 ML VIAL IVP PRN ×2 (08:59→17:18)
[2020-09-24] MEDS: Mirtazapine 15 MG TABLET PO SCH (20:58)
[2020-09-25] MEDS: Ipratropium/Albuterol Neb 3 ML IH SCH ×7 (00:10→23:22)
[2020-09-25 03:02] LABS: Basophils % 0.3 %; Eosinophils # 0.2 K/mcL (0.0-0.6); Eosinophils % 1.4 %; Hematocrit 25.6 % (35.3-44.9); Hemoglobin 8.2 g/dL (11.5-15.4); Lymphocytes # 2.3 K/mcL (0.6-4.6); Mean Corpuscular Hemoglobin 29.8 pg (28.0-33.3); Mean Corpuscular Volume 93.1 fL (83.0-100.0); Mean Platelet Volume 9.5 fL (9.4-12.4); Monocytes # 1.1 K/mcL (0.0-1.3); Monocytes % 9.2 %; Neutrophils # 7.9 K/mcL (1.6-8.9); Platelet Count 274 K/mcL (140-400); Red Blood Count 2.75 M/mcL (3.82-4.97); Red Cell Distribution Width 19.8 % (11.5-14.5); Segmented Neutrophils % 68.1 %; White Blood Count 11.6 K/mcL (4.3-11.1)
[2020-09-25 03:19] LABS: INR 1.7; Prothrombin Time 19.8 Seconds (9.4-12.1)
[2020-09-25 03:21] LABS: Calcium 8.4 mg/dL (8.6-10.3); Magnesium 1.6 mg/dL (1.6-2.6); Phosphorous 2.4 mg/dL (2.7-4.5); Potassium 3.4 mEq/L (3.5-5.1)
[2020-09-25] MEDS: Artificial Tears SOLN 15 ML BOTTLE BOTH EYES SCH ×6 (06:18→20:07)
[2020-09-25] MEDS: Pantoprazole 40 MG VIAL IVP SCH ×2 (06:19→17:07)
[2020-09-25] MEDS: Vitamin B Complex/Vit C/Vit E 1 EACH TABLET PO SCH (07:17)
[2020-09-25] MEDS: Fluconazole 100 MG TABLET PO SCH (07:17)
[2020-09-25] MEDS: Chlorhexidine Rinse 15 ML MOUTHWASH MM SCH ×2 (07:18→20:07)
[2020-09-25] MEDS: metroNIDAZOLE 500 MG TABLET PO SCH ×3 (07:18→20:07)
[2020-09-25] MEDS: clonazePAM 0.5 MG TABLET PO SCH ×3 (07:18→20:07)
[2020-09-25] MEDS: Desitin (Zinc Oxide) 56 GM TUBE TP SCH ×3 (07:27→20:07)
[2020-09-25] MEDS: Budesonide/Formoterol 160/4.5 1 PUFF INH IH SCH ×2 (07:51→19:30)
[2020-09-25] MEDS: Ondansetron 4 MG/2 ML VIAL IVP PRN ×3 (08:11→22:47)
[2020-09-25] MEDS: *HR* Promethazine 25 MG/ML VIAL IM PRN (14:03)
[2020-09-25] MEDS: Mirtazapine 15 MG TABLET PO SCH (20:07)
[2020-09-26] MEDS: Artificial Tears SOLN 15 ML BOTTLE BOTH EYES SCH ×6 (00:28→21:34)
[2020-09-26] MEDS: Ipratropium/Albuterol Neb 3 ML IH SCH ×6 (04:06→23:38)
[2020-09-26 05:45] LABS: Basophils % 0.2 %; Eosinophils # 0.1 K/mcL (0.0-0.6); Eosinophils % 1.2 %; Hematocrit 24.7 % (35.3-44.9); Hemoglobin 7.7 g/dL (11.5-15.4); Immature Granulocytes % 0.8 % (0-4); Lymphocytes # 1.6 K/mcL (0.6-4.6); Lymphocytes % 17.8 %; Mean Corpuscular HGB Conc 31.2 g/dL (31.6-35.5); Mean Corpuscular Hemoglobin 28.9 pg (28.0-33.3); Mean Corpuscular Volume 92.9 fL (83.0-100.0); Mean Platelet Volume 9.3 fL (9.4-12.4); Monocytes % 10.7 %; Neutrophils # 6.2 K/mcL (1.6-8.9); Platelet Count 280 K/mcL (140-400); Red Blood Count 2.66 M/mcL (3.82-4.97); Red Cell Distribution Width 19.6 % (11.5-14.5); Segmented Neutrophils % 69.3 %
[2020-09-26 06:05] LABS: Calcium 8.7 mg/dL (8.6-10.3); Potassium 3.7 mEq/L (3.5-5.1)
[2020-09-26 06:14] LABS: INR 1.7; Prothrombin Time 19.3 Seconds (9.4-12.1)
[2020-09-26 06:26] LABS: Magnesium 1.7 mg/dL (1.6-2.6); Phosphorous 2.9 mg/dL (2.7-4.5)
[2020-09-26] MEDS ORDERED: *HR* Heparin 10,000 UNIT/10 ML VIAL IV PRN (07:28)
[2020-09-26] MEDS: Budesonide/Formoterol 160/4.5 1 PUFF INH IH SCH ×2 (07:33→20:32)
[2020-09-26] MEDS: Chlorhexidine Rinse 15 ML MOUTHWASH MM SCH ×2 (08:20→21:34)
[2020-09-26] MEDS: Pantoprazole 40 MG VIAL IVP SCH ×2 (08:20→17:32)
[2020-09-26] MEDS: Desitin (Zinc Oxide) 56 GM TUBE TP SCH ×3 (08:21→21:33)
[2020-09-26] MEDS: Ondansetron 4 MG/2 ML VIAL IVP PRN (08:33)
[2020-09-26] MEDS: Metoclopramide 10 MG/2 ML VIAL IVP PRN (12:24)
[2020-09-26] MEDS: metroNIDAZOLE 500 MG TABLET PO SCH ×3 (13:00→21:36)
[2020-09-26] MEDS: Vitamin B Complex/Vit C/Vit E 1 EACH TABLET PO SCH (13:00)
[2020-09-26] MEDS: Fluconazole 100 MG TABLET PO SCH (13:00)
[2020-09-26] MEDS: clonazePAM 0.5 MG TABLET PO SCH ×3 (13:00→21:36)
[2020-09-26] MEDS: Cefepime HCl 2,000 MG in 0.9 % Sodium Chloride Mini Bag 100 ML IVPB SCH (17:31)
[2020-09-26] MEDS: Mirtazapine 15 MG TABLET PO SCH (21:35)
[2020-09-26] MEDS: 0.9 % Sodium Chloride 250 ML IVC PRN ×2 (21:36→22:26)
[2020-09-27] MEDS: Artificial Tears SOLN 15 ML BOTTLE BOTH EYES SCH ×7 (02:05→23:35)
[2020-09-27] MEDS: Ipratropium/Albuterol Neb 3 ML IH SCH ×6 (03:54→23:50)
[2020-09-27 04:46] LABS: Basophils % 0.2 %; Eosinophils # 0.1 K/mcL (0.0-0.6); Eosinophils % 1.5 %; Hematocrit 23.6 % (35.3-44.9); Hemoglobin 7.4 g/dL (11.5-15.4); Immature Granulocytes % 1.3 % (0-4); Mean Corpuscular HGB Conc 31.4 g/dL (31.6-35.5); Mean Corpuscular Hemoglobin 29.4 pg (28.0-33.3); Mean Corpuscular Volume 93.7 fL (83.0-100.0); Mean Platelet Volume 9.8 fL (9.4-12.4); Monocytes # 1.1 K/mcL (0.0-1.3); Monocytes % 12.9 %; Neutrophils # 6.1 K/mcL (1.6-8.9); Platelet Count 281 K/mcL (140-400); Red Blood Count 2.52 M/mcL (3.82-4.97); Segmented Neutrophils % 72.1 %; White Blood Count 8.5 K/mcL (4.3-11.1)
[2020-09-27 04:54] LABS: INR 1.8; Prothrombin Time 20.8 Seconds (9.4-12.1)
[2020-09-27 04:55] LABS: Calcium 8.8 mg/dL (8.6-10.3); Magnesium 1.6 mg/dL (1.6-2.6); Phosphorous 2.2 mg/dL (2.7-4.5); Potassium 3.8 mEq/L (3.5-5.1)
[2020-09-27] MEDS: Pantoprazole 40 MG VIAL IVP SCH ×2 (04:56→17:57)
[2020-09-27] MEDS: 0.9 % Sodium Chloride 250 ML IVC PRN ×2 (04:57→06:32)
[2020-09-27] MEDS: Budesonide/Formoterol 160/4.5 1 PUFF INH IH SCH ×2 (08:07→20:50)
[2020-09-27] MEDS: Fluconazole 100 MG TABLET PO SCH (08:16)
[2020-09-27] MEDS: clonazePAM 0.5 MG TABLET PO SCH ×3 (08:17→20:22)
[2020-09-27] MEDS: Vitamin B Complex/Vit C/Vit E 1 EACH TABLET PO SCH (08:17)
[2020-09-27] MEDS: metroNIDAZOLE 500 MG TABLET PO SCH ×3 (08:17→20:22)
[2020-09-27] MEDS: Chlorhexidine Rinse 15 ML MOUTHWASH MM SCH ×2 (08:18→20:21)
[2020-09-27] MEDS: Ondansetron 4 MG/2 ML VIAL IVP PRN (09:19)
[2020-09-27] MEDS: Desitin (Zinc Oxide) 56 GM TUBE TP SCH ×3 (10:26→20:21)
[2020-09-27] MEDS: Psyllium 1 PACKET POWD.PACK PO SCH ×2 (15:20→20:23)
[2020-09-27] MEDS: Mirtazapine 15 MG TABLET PO SCH (20:23)
[2020-09-28] MEDS: Artificial Tears SOLN 15 ML BOTTLE BOTH EYES SCH ×6 (03:15→23:59)
[2020-09-28] MEDS: Ipratropium/Albuterol Neb 3 ML IH SCH ×6 (04:24→23:52)
[2020-09-28 05:01] LABS: Basophils % 0.4 %; Eosinophils # 0.1 K/mcL (0.0-0.6); Eosinophils % 1.2 %; Hematocrit 22.9 % (35.3-44.9); Hemoglobin 7.3 g/dL (11.5-15.4); Immature Granulocytes % 1.2 % (0-4); Lymphocytes # 0.9 K/mcL (0.6-4.6); Lymphocytes % 10.7 %; Mean Corpuscular HGB Conc 31.9 g/dL (31.6-35.5); Mean Corpuscular Hemoglobin 29.2 pg (28.0-33.3); Mean Corpuscular Volume 91.6 fL (83.0-100.0); Mean Platelet Volume 10.1 fL (9.4-12.4); Monocytes % 11.9 %; Neutrophils # 6.2 K/mcL (1.6-8.9); Platelet Count 345 K/mcL (140-400); Red Cell Distribution Width 20.1 % (11.5-14.5); Segmented Neutrophils % 74.6 %; White Blood Count 8.3 K/mcL (4.3-11.1)
[2020-09-28 05:08] LABS: INR 1.9
[2020-09-28] MEDS: Pantoprazole 40 MG VIAL IVP SCH ×2 (06:24→17:23)
[2020-09-28] MEDS ORDERED: 0.9 % Sodium Chloride 2,000 ML ONE (07:12)
[2020-09-28] MEDS: Budesonide/Formoterol 160/4.5 1 PUFF INH IH SCH ×2 (07:27→20:18)
[2020-09-28] MEDS ORDERED: 0.9 % Sodium Chloride 250 ML IVC PRN (07:29)
[2020-09-28] MEDS ORDERED: *HR* Heparin 10,000 UNIT/10 ML VIAL IV PRN (07:29)
[2020-09-28 08:14] LABS: Calcium 8.9 mg/dL (8.6-10.3); Magnesium 1.6 mg/dL (1.6-2.6); Phosphorous 2.5 mg/dL (2.7-4.5); Potassium 3.8 mEq/L (3.5-5.1)
[2020-09-28] MEDS: Desitin (Zinc Oxide) 56 GM TUBE TP SCH ×3 (08:40→21:51)
[2020-09-28] MEDS: metroNIDAZOLE 500 MG TABLET PO SCH ×3 (13:00→21:51)
[2020-09-28] MEDS: clonazePAM 0.5 MG TABLET PO SCH ×3 (13:00→21:53)
[2020-09-28] MEDS: Lactobacillus 1 EACH CAP.SPRINK PO SCH (13:00)
[2020-09-28] MEDS: Vitamin B Complex/Vit C/Vit E 1 EACH TABLET PO SCH (13:00)
[2020-09-28] MEDS: Fluconazole 100 MG TABLET PO SCH (13:01)
[2020-09-28] MEDS: Psyllium 1 PACKET POWD.PACK PO SCH ×3 (13:01→21:51)
[2020-09-28] MEDS: Chlorhexidine Rinse 15 ML MOUTHWASH MM SCH ×2 (13:01→21:50)
[2020-09-28] MEDS: Ondansetron 4 MG/2 ML VIAL IVP PRN (13:04)
[2020-09-28] MEDS: *HR* Phytonadione 10 MG/ML AMPUL SQ SCH (13:25)
[2020-09-28] MEDS: Metoclopramide 10 MG/2 ML VIAL IVP PRN (15:53)
[2020-09-28] MEDS: Cefepime HCl 2,000 MG in 0.9 % Sodium Chloride Mini Bag 100 ML IVPB SCH (17:23)
[2020-09-28] MEDS: *HR* Dextrose 50 % in Water (Vial) 50 ML VIAL IVP PRN (17:23)
[2020-09-28] MEDS: Mirtazapine 15 MG TABLET PO SCH (21:52)
[2020-09-29] MEDS: Artificial Tears SOLN 15 ML BOTTLE BOTH EYES SCH ×5 (04:00→19:28)
[2020-09-29] MEDS: Ipratropium/Albuterol Neb 3 ML IH SCH ×6 (04:12→23:30)
[2020-09-29 04:19] LABS: Basophils % 0.3 %; Eosinophils # 0.1 K/mcL (0.0-0.6); Eosinophils % 0.7 %; Hemoglobin 6.6 g/dL (11.5-15.4); Immature Granulocytes % 0.7 % (0-4); Lymphocytes # 1.5 K/mcL (0.6-4.6); Lymphocytes % 21.4 %; Mean Corpuscular HGB Conc 31.4 g/dL (31.6-35.5); Mean Corpuscular Hemoglobin 29.2 pg (28.0-33.3); Mean Corpuscular Volume 92.9 fL (83.0-100.0); Monocytes # 1.2 K/mcL (0.0-1.3); Monocytes % 18.1 %; Platelet Count 329 K/mcL (140-400); Red Blood Count 2.26 M/mcL (3.82-4.97); Red Cell Distribution Width 20.2 % (11.5-14.5); Segmented Neutrophils % 58.8 %; White Blood Count 6.8 K/mcL (4.3-11.1)
[2020-09-29 04:29] LABS: INR 1.7; Prothrombin Time 19.4 Seconds (9.4-12.1)
[2020-09-29 04:37] LABS: Calcium 8.4 mg/dL (8.6-10.3); Magnesium 1.6 mg/dL (1.6-2.6); Phosphorous 1.5 mg/dL (2.7-4.5); Potassium 3.5 mEq/L (3.5-5.1)
[2020-09-29] MEDS: Pantoprazole 40 MG VIAL IVP SCH ×2 (05:44→18:06)
[2020-09-29] MEDS: Budesonide/Formoterol 160/4.5 1 PUFF INH IH SCH ×2 (07:16→19:51)
[2020-09-29] MEDS: Vitamin B Complex/Vit C/Vit E 1 EACH TABLET PO SCH (08:12)
[2020-09-29] MEDS: metroNIDAZOLE 500 MG TABLET PO SCH ×3 (08:12→19:28)
[2020-09-29] MEDS: clonazePAM 0.5 MG TABLET PO SCH ×3 (08:12→19:29)
[2020-09-29] MEDS: Lactobacillus 1 EACH CAP.SPRINK PO SCH (08:12)
[2020-09-29] MEDS: *HR* Phytonadione 10 MG/ML AMPUL SQ SCH (08:13)
[2020-09-29] MEDS: Fluconazole 100 MG TABLET PO SCH (08:13)
[2020-09-29] MEDS: Psyllium 1 PACKET POWD.PACK PO SCH ×3 (08:13→19:34)
[2020-09-29] MEDS: Chlorhexidine Rinse 15 ML MOUTHWASH MM SCH ×2 (08:14→19:28)
[2020-09-29] MEDS: Desitin (Zinc Oxide) 56 GM TUBE TP SCH ×3 (08:14→19:28)
[2020-09-29] MEDS ORDERED: 0.9 % Sodium Chloride 250 ML ONE (12:10)
[2020-09-29] MEDS ORDERED: SODIUM CHLORIDE/NAHCO3/KCL/PEG 4,000 ML SOLN.RECON PO ONE (17:00)
[2020-09-29 18:55] LABS: Hematocrit 26.1 % (35.3-44.9); Hemoglobin 8.1 g/dL (11.5-15.4)
[2020-09-29] MEDS: Mirtazapine 15 MG TABLET PO SCH (19:35)
[2020-09-30] MEDS: Artificial Tears SOLN 15 ML BOTTLE BOTH EYES SCH ×5 (00:35→15:16)
[2020-09-30] MEDS: Ipratropium/Albuterol Neb 3 ML IH SCH ×4 (03:52→16:16)
[2020-09-30] MEDS: Pantoprazole 40 MG VIAL IVP SCH ×2 (05:46→16:13)
[2020-09-30] MEDS ORDERED: 0.9 % Sodium Chloride 2,000 ML ONE (07:07)
[2020-09-30] MEDS: Budesonide/Formoterol 160/4.5 1 PUFF INH IH SCH (07:32)
[2020-09-30 07:41] LABS: Basophils % 0.4 %; Eosinophils # 0.1 K/mcL (0.0-0.6); Eosinophils % 1.3 %; Hematocrit 25.6 % (35.3-44.9); Hemoglobin 8.3 g/dL (11.5-15.4); Immature Granulocytes % 1.6 % (0-4); Lymphocytes # 1.2 K/mcL (0.6-4.6); Lymphocytes % 14.1 %; Mean Corpuscular HGB Conc 32.4 g/dL (31.6-35.5); Mean Corpuscular Hemoglobin 29.9 pg (28.0-33.3); Mean Corpuscular Volume 92.1 fL (83.0-100.0); Mean Platelet Volume 9.9 fL (9.4-12.4); Monocytes # 1.1 K/mcL (0.0-1.3); Monocytes % 13.8 %; Neutrophils # 5.6 K/mcL (1.6-8.9); Platelet Count 395 K/mcL (140-400); Red Blood Count 2.78 M/mcL (3.82-4.97); Segmented Neutrophils % 68.8 %; White Blood Count 8.2 K/mcL (4.3-11.1)
[2020-09-30 07:48] LABS: INR 1.5; Prothrombin Time 16.7 Seconds (9.4-12.1)
[2020-09-30 07:59] LABS: Calcium 8.7 mg/dL (8.6-10.3); Magnesium 1.6 mg/dL (1.6-2.6); Phosphorous 2.4 mg/dL (2.7-4.5); Potassium 3.6 mEq/L (3.5-5.1)
[2020-09-30] MEDS ORDERED: 0.9 % Sodium Chloride 250 ML IVC PRN (08:05)
[2020-09-30] MEDS ORDERED: *HR* Heparin 10,000 UNIT/10 ML VIAL IV PRN ×2 (08:05)
[2020-09-30] MEDS ORDERED: 0.9 % Sodium Chloride 1,000 ML PRIME SCH (08:15)
[2020-09-30] MEDS: *HR* Phytonadione 10 MG/ML AMPUL SQ SCH (08:28)
[2020-09-30] MEDS: Chlorhexidine Rinse 15 ML MOUTHWASH MM SCH (08:28)
[2020-09-30] MEDS: Psyllium 1 PACKET POWD.PACK PO SCH (08:28)
[2020-09-30] MEDS: Desitin (Zinc Oxide) 56 GM TUBE TP SCH ×2 (08:29→15:16)
[2020-09-30] MEDS: Vitamin B Complex/Vit C/Vit E 1 EACH TABLET PO SCH (08:29)
[2020-09-30] MEDS: Lactobacillus 1 EACH CAP.SPRINK PO SCH (08:29)
[2020-09-30] MEDS: metroNIDAZOLE 500 MG TABLET PO SCH ×2 (08:29→15:16)
[2020-09-30] MEDS: clonazePAM 0.5 MG TABLET PO SCH ×2 (08:29→15:16)
[2020-09-30] MEDS: Ondansetron 4 MG/2 ML VIAL IVP PRN (09:10)
[2020-09-30] MEDS ORDERED: *HR* Midazolam HCl 2 MG/2 ML VIAL ONE (13:12)
[2020-09-30] MEDS ORDERED: Lidocaine -MPF 2% 5 ML VIAL ONE (13:14)
[2020-09-30] MEDS ORDERED: Ondansetron 4 MG/2 ML VIAL ONE (13:15)
[2020-09-30] MEDS ORDERED: *HR* Propofol 200 MG/20 ML VIAL IVP ONE (13:15)
[2020-09-30] MEDS ORDERED: 0.9 % Sodium Chloride 500 ML IVC SCH (13:45)
[2020-09-30] MEDS ORDERED: Ringers Solution, Lactated 1,000 ML IVC SCH (13:45)
[2020-09-30] MEDS ORDERED: *HR* FentaNYL (PF) 100 MCG/2 ML VIAL ONE (13:45)
[2020-09-30 15:18] VITALS: BP 105/46
[2020-09-30] MEDS: Cefepime HCl 2,000 MG in 0.9 % Sodium Chloride Mini Bag 100 ML IVPB SCH (16:12)
== END 2020-09-30 18:24 | DRG 870 ==
LOC: SUATTDRO 17:10 → ICNU 17:10 → 2NNU 09-17 12:19
PROVIDERS: ADMIT Pediatrics; ATTEND Internal Medicine
PROC: ENDOCBX (2020-09-30 08:30)

== ENCOUNTER 2020-10-04 13:17 | Inpatient (IN) ==
[2020-10-04] MEDS ORDERED: Isovue-370 500 ML BOTTLE IVP ONE ×2 (13:53→14:28)
[2020-10-04 14:52] LABS: Hematocrit 32.2 % (35.3-44.9); Hemoglobin 9.7 g/dL (11.5-15.4); Mean Corpuscular HGB Conc 30.1 g/dL (31.6-35.5); Mean Corpuscular Hemoglobin 30.7 pg (28.0-33.3); Mean Platelet Volume 10.3 fL (9.4-12.4); Nucleated Red Blood Cells 1.4 /100 WBC (0); Platelet Count 501 K/mcL (140-400); Red Blood Count 3.16 M/mcL (3.82-4.97); Red Cell Distribution Width 22.5 % (11.5-14.5)
[2020-10-04 14:58] LABS: Mean Corpuscular Volume 101.9 fL (83.0-100.0); White Blood Count 21.1 K/mcL (4.3-11.1)
[2020-10-04 15:02] LABS: Prothrombin Time 22.2 Seconds (9.4-12.1)
[2020-10-04] MEDS ORDERED: Aztreonam 2,000 MG in Water for inj. (sterile) 20 ML IVP ONE (15:17)
[2020-10-04] MEDS ORDERED: Vancomycin 1,250 MG/262.5 ML IV.SOLN IVPB ONE ×2 (15:17→22:00)
[2020-10-04] MEDS ORDERED: levoFLOXacin 750 MG/150 ML 750 MG/150 ML BAG IVPB ONE (15:17)
[2020-10-04 15:28] LABS: Lymphocytes # 0.4 K/mcL (0.6-4.6); Monocytes # 2.1 K/mcL (0.0-1.3); Neutrophils # 16.9 K/mcL (1.6-8.9); Platelet Estimate Increased (Normal)
[2020-10-04 15:30] LABS: Albumin 3.1 g/dL (3.5-5.7); Albumin/Globulin Ratio 0.9 (1.1-2.2); Bilirubin,Total 1.6 mg/dL (0.3-1.0); Calcium 8.9 mg/dL (8.6-10.3); Globulin 3.6 g/dL (2.4-3.5); Potassium 5.5 mEq/L (3.5-5.1); Total Protein 6.7 g/dL (6.4-8.9); Troponin I 0.06 ng/mL (< 0.04)
[2020-10-04] MEDS ORDERED: 0.9 % Sodium Chloride 1,000 ML ONE (15:49)
[2020-10-04] MEDS ORDERED: 0.9 % Sodium Chloride 1,000 ML IVC ONE ×2 (15:51)
[2020-10-04] MEDS ORDERED: 0.9 % Sodium Chloride 500 ML IVC ONE (17:40)
[2020-10-04] MEDS ORDERED: Naloxone 0.4 MG/ML INJ IVP PRN (17:45)
[2020-10-04] MEDS ORDERED: Artificial Tears SOLN 15 ML BOTTLE BOTH EYES PRN (17:53)
[2020-10-04] MEDS ORDERED: Vancomycin (wt based) 1,000 MG VIAL IVPB SCH (18:00)
[2020-10-04] MEDS ORDERED: Pantoprazole 40 MG VIAL IVP SCH (18:00)
[2020-10-04] MEDS ORDERED: Dexmedetomidine HCl 400 MCG/100 ML MLS IVC SCH (18:00)
[2020-10-04] MEDS ORDERED: SODIUM ZIRCONIUM CYCLOSILICATE 5 GM POWD.PACK PO SCH (18:00)
[2020-10-04] MEDS ORDERED: FentaNYL (PF) 1,000 MCG/100 ML IV.SOLN IVC SCH (18:00)
[2020-10-04] MEDS: Norepinephrine 4 MG/254 ML IV.SOLN IVC SCH ×2 (18:07→23:16)
[2020-10-04 19:05] LABS: ABG Base Excess -19 mEq/L (-2 to 3); ABG HCO3 10 mEq/L (21-27); ABG Oxygen Saturation 98 % (95-98); ABG PCO2 36 mmHg (35-45); ABG PH 7.06 pH Units (7.32-7.45); ABG PO2 138 mmHg (85-104); ABG TCO2 11 mEq/L (20-26); Blood Gas Modality ASSIST CONTROL; Blood Gas VT 380 cc
[2020-10-04] MEDS: Sodium Bicarbonate 150 MEQ in D5% in Water 1,000 ML IVC SCH (19:36)
[2020-10-04] MEDS ORDERED: Cefepime HCl 2,000 MG in Water for inj. (sterile) 20 ML IVP SCH (20:00)
[2020-10-04] MEDS ORDERED: Chlorhexidine Rinse 15 ML MOUTHWASH MM SCH (21:00)
[2020-10-04] MEDS ORDERED: *HR* Dextrose 50 % in Water (Vial) 50 ML VIAL ONE (21:11)
[2020-10-04] MEDS: Artificial Tears SOLN 15 ML BOTTLE BOTH EYES SCH ×2 (21:57→23:18)
[2020-10-04] MEDS: SODIUM CHLORIDE 0.9% IVPB SCH (21:57)
[2020-10-04] MEDS: TIGECYCLINE IVPB SCH (21:57)
[2020-10-04 22:01] LABS: Amorphous Sediment,Urine Few per hpf (None-Few); Bacteria,Urine Few per hpf (None-Few); Bilirubin,Urine Negative (Negative); Blood,Urine Moderate (Negative); Clarity,Urine Turbid (Clear); Color,Urine Dark-Yellow (Yellow); Glucose,Urine (UA) Normal (Normal); Ketones,Urine Negative (Negative); Leukocyte Esterase,Urine Small (Negative); Mucus,Urine Few per lpf (None-Few); Nitrite,Urine Negative (Negative); Protein,Urine 100 mg/dL (Neg-Trace); Specific Gravity,Urine 1.022 (1.010-1.025); Squamous Epithelial Cell,Urine Few per hpf (None-Few); Transitional Epi Cells,Urine Few per hpf (None-Few); Urobilinogen,Urine Normal (Normal); WBC,Urine 30-50 per hpf (0-3)
[2020-10-04 22:39] LABS: Albumin 2.5 g/dL (3.5-5.7); Albumin/Globulin Ratio 0.9 (1.1-2.2); Bilirubin,Total 1.7 mg/dL (0.3-1.0); Calcium 7.6 mg/dL (8.6-10.3); Globulin 2.8 g/dL (2.4-3.5); Potassium 5.5 mEq/L (3.5-5.1); Total Protein 5.3 g/dL (6.4-8.9)
[2020-10-04 22:58] LABS: ABG Base Excess -21 mEq/L (-2 to 3); ABG HCO3 9 mEq/L (21-27); ABG Oxygen Saturation 99 % (95-98); ABG PCO2 36 mmHg (35-45); ABG PH 7.02 pH Units (7.32-7.45); ABG PO2 197 mmHg (85-104); ABG TCO2 11 mEq/L (20-26); Blood Gas VT 400 cc
[2020-10-04] MEDS: MetroNIDAZOLE 500 MG/100 ML 500 MG/100 ML BAG IVPB SCH (23:17)
[2020-10-04] MEDS ORDERED: Cisatracurium 200 MG in 0.9 % Sodium Chloride 180 ML IVC SCH (23:30)
[2020-10-05] MEDS ORDERED: Cefepime HCl 2,000 MG in Water for inj. (sterile) 20 ML IVP SCH
[2020-10-05] MEDS ORDERED: 0.9 % Sodium Chloride 1,000 ML ONE (00:28)
[2020-10-05] MEDS ORDERED: Vasopressin 40 UNIT in D5% in Water 100 ML IVC SCH (00:45)
[2020-10-05 02:25] LABS: BUN/Creatinine Ratio 46 (6-26); Blood Urea Nitrogen 33 mg/dL (6-20); Calcium 7.5 mg/dL (8.6-10.3); Carbon Dioxide 11 mEq/L (23-29); Chloride 93 mEq/L (98-107); Potassium 5.1 mEq/L (3.5-5.1); Sodium 139 mEq/L (136-145); eGFR For African Americans > 60 (> 60); eGFR For Non-African Americans > 60 (> 60)
[2020-10-05 02:37] LABS: Glucose 85 mg/dL (70-105); Osmolality,Calculated 295 (280-300)
[2020-10-05] MEDS: Norepinephrine 4 MG/254 ML IV.SOLN IVC SCH ×3 (03:20→08:41)
[2020-10-05] MEDS: Artificial Tears SOLN 15 ML BOTTLE BOTH EYES SCH (04:10)
[2020-10-05 04:52] LABS: Blood Gas VT 450 cc; Mixed Venous Blood pCO2 44 mmHg (44-46); Mixed Venous Blood pH 6.97 pH Units (7.34-7.36); Mixed Venous Blood pO2 35 mmHg (35-45)
[2020-10-05] MEDS ORDERED: Phenylephrine 10 MG in 0.9 % Sodium Chloride 250 ML IVC SCH (05:00)
[2020-10-05 05:01] LABS: INR 3.4
[2020-10-05 05:06] LABS: Nucleated Red Blood Cells 1.9 /100 WBC (0)
[2020-10-05 05:07] LABS: Basophils % 0.1 %; Hematocrit 34.4 % (35.3-44.9); Immature Granulocytes % 16.5 % (0-4); Lymphocytes % 2.5 %; Mean Corpuscular HGB Conc 29.1 g/dL (31.6-35.5); Mean Corpuscular Volume 106.5 fL (83.0-100.0); Mean Platelet Volume 10.1 fL (9.4-12.4); Monocytes # 1.7 K/mcL (0.0-1.3); Monocytes % 4.1 %; Platelet Count 377 K/mcL (140-400); Red Blood Count 3.23 M/mcL (3.82-4.97); Red Cell Distribution Width 22.7 % (11.5-14.5); Segmented Neutrophils % 76.8 %
[2020-10-05 05:11] LABS: Calcium 7.6 mg/dL (8.6-10.3); Potassium 5.2 mEq/L (3.5-5.1)
[2020-10-05 05:12] LABS: Neutrophils # 31.8 K/mcL (1.6-8.9)
[2020-10-05 05:13] LABS: White Blood Count 41.4 K/mcL (4.3-11.1)
[2020-10-05 05:45] LABS: Platelet Estimate Normal (Normal)
[2020-10-05] MEDS ORDERED: Phenylephrine 50 MG in 0.9 % Sodium Chloride 250 ML IVC SCH (06:00)
[2020-10-05] MEDS ORDERED: Hydrocortisone Sodium Succ 100 MG/2 ML VIAL IVP SCH (06:00)
[2020-10-05] MEDS: Sodium Bicarbonate 150 MEQ in D5% in Water 1,000 ML IVC SCH (06:16)
[2020-10-05 06:38] LABS: Albumin 2.6 g/dL (3.5-5.7); Albumin/Globulin Ratio 0.9 (1.1-2.2); Globulin 2.9 g/dL (2.4-3.5); Total Protein 5.5 g/dL (6.4-8.9)
[2020-10-05] MEDS ORDERED: *HR* Dextrose 50 % in Water (Vial) 50 ML VIAL ONE (09:11)
[2020-10-05] MEDS ORDERED: *HR* Dextrose 50 % in Water (Vial) 50 ML VIAL IVP ONE (09:14)
[2020-10-05] MEDS: TIGECYCLINE IVPB SCH (10:25)
[2020-10-05] MEDS: MetroNIDAZOLE 500 MG/100 ML 500 MG/100 ML BAG IVPB SCH (10:25)
[2020-10-05] MEDS: SODIUM CHLORIDE 0.9% IVPB SCH (10:25)
[2020-10-05 10:43] VITALS: BP 55/11
[2020-10-05] MEDS ORDERED: Tigecycline 50 MG in 0.9 % Sodium Chloride Mini Bag 100 ML IVPB SCH ×2 (12:30→21:00)
== END 2020-10-05 10:54 | disposition expired | DRG 871 ==
LOC: EMEROOARM 13:17 → ICNU 17:20
PROVIDERS: ADMIT Internal Medicine; ATTEND Internal Medicine